=== PATIENT | female | born 1950 | race Caucasian/White ===

== ENCOUNTER 2016-10-16 10:09 | Emergency (ER) | payer OTHER ==
[~2016-10-16] VITALS: Ht 157.5 cm; Wt 90.7 kg
[2016-10-16 10:13] VITALS: BP_SYST 152
[2016-10-16 11:17] LABS: BASOPHILS # (AUTO) 0.1 K/uL (0.0-0.2); BASOPHILS % (AUTO) 0.9 % (0.0-2.0); EOSINOPHILS # (AUTO) 0.1 K/uL (0.0-0.4); EOSINOPHILS % (AUTO) 0.9 % (0.0-4.0); LYMPHOCYTES # (AUTO) 2.7 K/uL (1.0-5.5); LYMPHOCYTES % (AUTO) 30.4 % (20.5-51.5); MEAN CORPUSCULAR HEMOGLOBIN 30 pg (27-31); MEAN CORPUSCULAR HGB CONC 33 % (32-36); MEAN CORPUSCULAR VOLUME 89 fL (79.0-98.0); MONOCYTES # (AUTO) 0.5 K/uL (0.0-1.0); MONOCYTES % (AUTO) 6.1 % (1.7-9.3); NEUTROPHILS # (AUTO) 5.5 K/uL (1.8-7.7); NEUTROPHILS % (AUTO) 61.7 % (40.0-70.0); PLATELET COUNT (AUTO) 360 K/uL (130-430); RED BLOOD CELL COUNT(AUTO) 4.41 MIL/uL (4.2-6.2); RED CELL DISTRIBUTION WIDTH 12.9 % (9.0-15.0); WHITE BLOOD COUNT (AUTO) 8.9 K/uL (4.8-10.8)
[2016-10-16] MEDS ORDERED: COLCHICINE 0.6 MG TABLET PO ONE (13:00)
[2016-10-16 13:49] VITALS: BP_SYST 135
== END 2016-10-16 13:49 | disposition home or self-care (01) ==
LOC: SED 10:09
DX: M10.9 Gout, unspecified (principal); E11.9 Type 2 diabetes mellitus without complications; I10 Essential (primary) hypertension
CPT/HCPCS: 36415; 84550-TC; 85025; 93971; 99285

== ENCOUNTER 2016-12-18 09:03 | Inpatient (IN) | payer OTHER ==
[~2016-12-18] VITALS: Ht 152.4 cm; Wt 89.8 kg
[2016-12-18 09:09] VITALS: BP_SYST 151
[2016-12-18 10:12] LABS: BASOPHILS % (AUTO) 0.9 % (0.0-2.0); EOSINOPHILS # (AUTO) 0.3 K/uL (0.0-0.4); EOSINOPHILS % (AUTO) 6.8 % (0.0-4.0); HEMATOCRIT 41.4 % (36-48); HEMOGLOBIN 13.8 g/dL (12.0-16.0); LYMPHOCYTES # (AUTO) 1.6 K/uL (1.0-5.5); LYMPHOCYTES % (AUTO) 40.8 % (20.5-51.5); MEAN CORPUSCULAR HEMOGLOBIN 29 pg (27-31); MEAN CORPUSCULAR HGB CONC 33 % (32-36); MEAN CORPUSCULAR VOLUME 89 fL (79.0-98.0); MONOCYTES # (AUTO) 0.4 K/uL (0.0-1.0); MONOCYTES % (AUTO) 9.1 % (1.7-9.3); NEUTROPHILS # (AUTO) 1.7 K/uL (1.8-7.7); NEUTROPHILS % (AUTO) 42.4 % (40.0-70.0); PLATELET COUNT (AUTO) 211 K/uL (130-430); RED BLOOD CELL COUNT(AUTO) 4.68 MIL/uL (4.2-6.2); RED CELL DISTRIBUTION WIDTH 12.7 % (9.0-15.0)
[2016-12-18 10:27] LABS: CALCIUM 10.4 mg/dL (8.4-11.0); CHLORIDE 97 mmol/L (98-107); CREATININE 0.97 mg/dL (0.55-1.30); GLUCOSE 158 mg/dL (70-99); SODIUM SERUM 137 mmol/L (136-145); UREA NITROGEN, BLOOD 15 mg/dL (8-21)
[2016-12-18] MEDS ORDERED: ONDANSETRON HCL 4 MG/2 ML VIAL IVP ONE (10:30)
[2016-12-18 10:31] LABS: GFR AFRICAN AMERICAN 74 mL/min (>90); INR 1.1 (0.8-1.2); PROTHROMBIN TIME 10.8 SECS (9.5-12.5)
[2016-12-18] MEDS ORDERED: POTASSIUM CHLORIDE 20 MEQ TAB.PRT.SR PO ONE (10:45)
[2016-12-18] MEDS ORDERED: POTASSIUM CHLORIDE 40 MEQ in NS 250 ML IV ONE (10:45)
[2016-12-18 10:53] LABS: ALANINE AMINOTRANSFERASE 49 U/L (12-78); ALBUMIN 3.9 g/dL (3.4-4.8); ANION GAP 11 (5-15); ASPARTATE AMINOTRANSFERASE 32 U/L (10-37); FREE T4 (FREE THYROXINE) 0.5 ng/dL (0.6-1.6); TOTAL BILIRUBIN 0.3 mg/dL (0.0-1.0)
[2016-12-18 10:56] LABS: ALCOHOL, BLOOD < 3 mg/dL (<10); POTASSIUM 2.6 mmol/L (3.5-5.1)
[2016-12-18 10:57] LABS: ERYTHROCYTE SEDIMENTATION RATE 71 MM/HR (0-20)
[2016-12-18] MEDS ORDERED: ATEN1TAB47 PO (10:59)
[2016-12-18] MEDS ORDERED: LEVO25TA58 PO (10:59)
[2016-12-18] MEDS ORDERED: FOLI-43 PO (10:59)
[2016-12-18] MEDS ORDERED: PRO20 PO (10:59)
[2016-12-18] MEDS ORDERED: PRAV20TA PO (10:59)
[2016-12-18] MEDS ORDERED: VITD2000 PO (10:59)
[2016-12-18] MEDS ORDERED: COLC0.6T67 PO (10:59)
[2016-12-18] MEDS ORDERED: POTA20TA83 PO (10:59)
[2016-12-18] MEDS ORDERED: ALLO100T PO (10:59)
[2016-12-18] MEDS ORDERED: KETOROLAC TROMETHAMINE 30 MG VIAL IVP ONE (11:15)
[2016-12-18] MEDS ORDERED: DIPHENHYDRAMINE INJ 50 MG/ML VIAL IVP ONE (12:00)
[2016-12-18] MEDS ORDERED: IPRATROPIUM BROM 0.5 MG/2.5 ML VIAL.NEB (ATROVENT) INH PRN (12:45)
[2016-12-18] MEDS ORDERED: ALBUTEROL SULFATE 0.083% 2.5 MG/3 ML VIAL.NEB INH PRN (12:45)
[2016-12-18 12:55] LABS: BILIRUBIN,URINE NEGATIVE (NEGATIVE); CLARITY/URINE SL HAZY (CLEAR); COLOR,URINE YELLOW (YELLOW); GLUCOSE,URINE NEGATIVE (NEGATIVE); KETONES,URINE NEGATIVE (NEGATIVE); LEUKOCYTE ESTERASE ,URINE TRACE (NEGATIVE); NITRITE, URINE NEGATIVE (NEGATIVE); PROTEIN URINE NEGATIVE (NEGATIVE); UROBILINOGEN,URINE 0.2 (0.2-1.0)
[2016-12-18 13:19] LABS: BLOOD, URINE TRACE (NEGATIVE)
[2016-12-18 13:36] LABS: BACTERIA,URINE RARE /HPF (None Seen); URINE AMORPHOUS URATE 1+ /HPF (None Seen)
[2016-12-18 14:49] VITALS: BP_SYST 115
[2016-12-18 15:17] VITALS: BP_SYST 115
[2016-12-18] MEDS ORDERED: LISINOPRIL 10 MG TABLET (PRINIVIL) PO ONE (16:00)
[2016-12-18 16:37] VITALS: BP_SYST 115
[2016-12-18] MEDS: D5/0.45 NS 1,000 ML IV SCH (18:28)
[2016-12-18] MEDS ORDERED: COLCHICINE 0.6 MG TABLET PO SCH (21:00)
[2016-12-19 00:51] VITALS: BP_SYST 108
[2016-12-19 04:50] VITALS: BP_SYST 104
[2016-12-19 06:27] LABS: BASOPHILS % (AUTO) 0.6 % (0.0-2.0); EOSINOPHILS # (AUTO) 0.3 K/uL (0.0-0.4); EOSINOPHILS % (AUTO) 6.5 % (0.0-4.0); HEMATOCRIT 37.5 % (36-48); LYMPHOCYTES # (AUTO) 2.2 K/uL (1.0-5.5); LYMPHOCYTES % (AUTO) 53.5 % (20.5-51.5); MEAN CORPUSCULAR HEMOGLOBIN 29 pg (27-31); MEAN CORPUSCULAR HGB CONC 32 % (32-36); MEAN CORPUSCULAR VOLUME 90 fL (79.0-98.0); MONOCYTES # (AUTO) 0.4 K/uL (0.0-1.0); MONOCYTES % (AUTO) 9.2 % (1.7-9.3); NEUTROPHILS # (AUTO) 1.2 K/uL (1.8-7.7); NEUTROPHILS % (AUTO) 30.2 % (40.0-70.0); PLATELET COUNT (AUTO) 202 K/uL (130-430); RED BLOOD CELL COUNT(AUTO) 4.19 MIL/uL (4.2-6.2); RED CELL DISTRIBUTION WIDTH 12.7 % (9.0-15.0); WHITE BLOOD COUNT (AUTO) 4.1 K/uL (4.8-10.8)
[2016-12-19] MEDS: D5/0.45 NS 1,000 ML IV SCH (06:37)
[2016-12-19 06:53] LABS: CALCIUM 9.4 mg/dL (8.4-11.0)
[2016-12-19] MEDS ORDERED: LEVOTHYROXINE SODIUM 0.025 MG TABLET PO SCH (07:00)
[2016-12-19 07:54] LABS: CREATININE 0.93 mg/dL (0.55-1.30)
[2016-12-19 08:00] VITALS: BP_SYST 134
[2016-12-19] MEDS ORDERED: SIMVASTATIN 10 MG TABLET PO SCH (09:00)
[2016-12-19] MEDS ORDERED: POTASSIUM CHLORIDE 20 MEQ TAB.PRT.SR PO SCH (09:00)
[2016-12-19] MEDS ORDERED: FOLIC ACID 1 MG TABLET PO SCH (09:00)
[2016-12-19] MEDS ORDERED: ALLOPURINOL 100 MG TABLET (ZYLOPRIM) PO SCH (09:00)
[2016-12-19] MEDS ORDERED: ENOXAPARIN SODIUM 40 MG/0.4 ML SYRINGE SUBCUT SCH (09:00)
[2016-12-19] MEDS ORDERED: PRAVASTATIN SODIUM 20 MG TABLET (PRAVACHOL) PO SCH (09:00)
[2016-12-19] MEDS ORDERED: CHOLECALCIFEROL (VITAMIN D3) 2,000 UNIT TABLET PO SCH (09:00)
[2016-12-19] MEDS ORDERED: POTASSIUM CHLORIDE 20 MEQ/PKT PACKET PO ONE (09:15)
[2016-12-19] MEDS ORDERED: LISI10TA5 PO (11:48)
[2016-12-19 11:52] VITALS: BP_SYST 130
[2016-12-19 12:30] VITALS: BP_SYST 130
== END 2016-12-19 13:25 | disposition home or self-care (01) | DRG 392 ==
LOC: SED 09:03 → STU 14:12
PROVIDERS: ADMIT Internal Medicine Hospice and Palliative Medicine; ATTEND Internal Medicine Hospice and Palliative Medicine
DX: R19.7 Diarrhea, unspecified (principal); D72.1 Eosinophilia; E03.9 Hypothyroidism, unspecified; E78.5 Hyperlipidemia, unspecified; E11.9 Type 2 diabetes mellitus without complications; R00.1 Bradycardia, unspecified; L29.9 Pruritus, unspecified; I10 Essential (primary) hypertension; E87.6 Hypokalemia; M10.9 Gout, unspecified; R55 Syncope and collapse; T44.7X5A Adverse effect of beta-adrenoreceptor antagonists, initial encounter; Y92.89 Other specified places as the place of occurrence of the external cause; Z91.018 Allergy to other foods; Z88.6 Allergy status to analgesic agent; Z79.899 Other long term (current) drug therapy
CPT/HCPCS: 36415; 80048; 80053; 81000-TC; 83605; 83880; 84439; 84443-TC; 85025; 85610-TC; 85651-TC; 87040-TC; 93005; 96365; 96375; 99285; G0482; J1200; J1650; J1885; J2405; J3480; J7050

== ENCOUNTER 2020-08-25 06:00 | Inpatient (IN) | payer OTHER, SELFPAY ==
[2020-08-21 09:36] LABS: BASOPHILS # (AUTO) 0.1 K/uL (0.0-0.2); BASOPHILS % (AUTO) 1.3 % (0.0-2.0); EOSINOPHILS # (AUTO) 0.1 K/uL (0.0-0.4); EOSINOPHILS % (AUTO) 2.1 % (0.0-4.0); HEMATOCRIT 37.7 % (36-48); HEMOGLOBIN 12.9 g/dL (12.0-16.0); LYMPHOCYTES # (AUTO) 2.1 K/uL (1.0-5.5); LYMPHOCYTES % (AUTO) 38.2 % (20.5-51.5); MEAN CORPUSCULAR HEMOGLOBIN 31 pg (27-31); MEAN CORPUSCULAR HGB CONC 34 % (32-36); MEAN CORPUSCULAR VOLUME 91 fL (79.0-98.0); MONOCYTES # (AUTO) 0.4 K/uL (0.0-1.0); NEUTROPHILS # (AUTO) 2.9 K/uL (1.8-7.7); NEUTROPHILS % (AUTO) 51.4 % (40.0-70.0); PLATELET COUNT (AUTO) 355 K/uL (130-430); RED BLOOD CELL COUNT(AUTO) 4.15 MIL/uL (4.2-6.2); RED CELL DISTRIBUTION WIDTH 13.4 % (9.0-15.0); WHITE BLOOD COUNT (AUTO) 5.6 K/uL (4.8-10.8)
[2020-08-21 09:37] LABS: BILIRUBIN,URINE NEGATIVE (NEGATIVE); BLOOD, URINE NEGATIVE (NEGATIVE); CLARITY/URINE CLEAR (CLEAR); COLOR,URINE YELLOW (YELLOW); GLUCOSE,URINE NEGATIVE (NEGATIVE); KETONES,URINE NEGATIVE (NEGATIVE); LEUKOCYTE ESTERASE ,URINE NEGATIVE (NEGATIVE); NITRITE, URINE NEGATIVE (NEGATIVE); PH,URINE 5.5 (5.0-8.0); PROTEIN URINE NEGATIVE (NEGATIVE); UROBILINOGEN,URINE 0.2 (0.2-1.0)
[2020-08-21 09:39] LABS: CALCIUM 9.1 mg/dL (8.4-11.0); CREATININE 0.96 mg/dL (0.55-1.30); POTASSIUM 4.1 mmol/L (3.5-5.1); PROTHROMBIN TIME 9.9 SECS (9.5-12.5)
[~2020-08-25] VITALS: Ht 157.5 cm; Wt 90.7 kg
[~2020-08-25 06:00] MED LIST: ALLO100T PO; FOLI-43 PO; LEVO25TA2 PO; LISI10TA29 PO; PRAV20TA PO; PRO20 PO; VITD2000 PO
[2020-08-25] MEDS ORDERED: POLYMYXIN 500,000/BACIT.10,000 UNITS in NS IRR 1 L IR ONE (06:53)
[2020-08-25] MEDS ORDERED: BUPIVACAINE LIPOSOME/PF 266 MG/20 ML VIAL INFIL ONE (06:54)
[2020-08-25] MEDS ORDERED: CEFAZOLIN SOD 1 GM in D5W 50 ML IV ONE (07:00)
[2020-08-25] MEDS ORDERED: ACETAMINOPHEN 325 MG TABLET PO PRN ×2 (07:45→15:00)
[2020-08-25] MEDS ORDERED: BISACODYL 10 MG/SUPPOSITORY RC PRN (07:45)
[2020-08-25] MEDS ORDERED: D5/0.45 NS 1,000 ML IV ONE (07:45)
[2020-08-25] MEDS ORDERED: MORPHINE SULFATE 10 MG/ML VIAL IM PRN (07:45)
[2020-08-25] MEDS ORDERED: ACETAMINOPHEN I.V. 1000 MG 100 ML IV ONE (10:30)
[2020-08-25] MEDS: HYDROcodone/ACETAMIN 7.5-325 MG TAB PO PRN ×3 (11:11→23:05)
[2020-08-25 11:15] VITALS: BP_SYST 104
[2020-08-25] MEDS ORDERED: ONDANSETRON HCL 4 MG/2 ML VIAL ONE (11:56)
[2020-08-25] MEDS ORDERED: ONDANSETRON HCL 4 MG/2 ML VIAL IVP PRN (12:00)
[2020-08-25 12:20] VITALS: BP_SYST 136
[2020-08-25] MEDS: CEFAZOLIN 1 GM IVPB PREMIX 50 ML IV SCH ×2 (14:08→21:03)
[2020-08-25 16:05] VITALS: BP_SYST 138
[2020-08-25] MEDS: MORPHINE 4 MG INJ. 4 MG/ML VIAL IVP PRN ×2 (16:50→20:57)
[2020-08-25 20:40] VITALS: BP_SYST 117
[2020-08-26 00:05] VITALS: BP_SYST 110
[2020-08-26] MEDS: MORPHINE 4 MG INJ. 4 MG/ML VIAL IVP PRN ×3 (01:16→20:59)
[2020-08-26] MEDS: HYDROcodone/ACETAMIN 7.5-325 MG TAB PO PRN ×2 (03:08→07:46)
[2020-08-26] MEDS: LEVOTHYROXINE SODIUM 0.025 MG TABLET PO SCH (06:13)
[2020-08-26 06:31] LABS: BASOPHILS % (AUTO) 0.1 % (0.0-2.0); HEMATOCRIT 29.8 % (36-48); HEMOGLOBIN 10.1 g/dL (12.0-16.0); LYMPHOCYTES # (AUTO) 0.9 K/uL (1.0-5.5); LYMPHOCYTES % (AUTO) 6.5 % (20.5-51.5); MEAN CORPUSCULAR HEMOGLOBIN 31 pg (27-31); MEAN CORPUSCULAR HGB CONC 34 % (32-36); MEAN CORPUSCULAR VOLUME 91 fL (79.0-98.0); MONOCYTES # (AUTO) 1.2 K/uL (0.0-1.0); MONOCYTES % (AUTO) 8.1 % (1.7-9.3); NEUTROPHILS # (AUTO) 12.2 K/uL (1.8-7.7); NEUTROPHILS % (AUTO) 85.3 % (40.0-70.0); PLATELET COUNT (AUTO) 306 K/uL (130-430); RED BLOOD CELL COUNT(AUTO) 3.28 MIL/uL (4.2-6.2); RED CELL DISTRIBUTION WIDTH 13.6 % (9.0-15.0); WHITE BLOOD COUNT (AUTO) 14.3 K/uL (4.8-10.8)
[2020-08-26 07:14] LABS: ALBUMIN 3.3 g/dL (3.4-4.8); CALCIUM 8.9 mg/dL (8.4-11.0); CREATININE 1.03 mg/dL (0.55-1.30); POTASSIUM 4.2 mmol/L (3.5-5.1); TOTAL BILIRUBIN 0.3 mg/dL (0.0-1.0)
[2020-08-26 08:00] VITALS: BP_SYST 127
[2020-08-26] MEDS: MORPHINE 2 MG/ML INJ. SYRINGE IVP PRN (08:38)
[2020-08-26] MEDS: ALLOPURINOL 100 MG TABLET (ZYLOPRIM) PO SCH (08:38)
[2020-08-26] MEDS: ATORVASTATIN 10 MG TABLET PO SCH (08:38)
[2020-08-26] MEDS: FOLIC ACID 1 MG TABLET PO SCH (08:38)
[2020-08-26] MEDS: LISINOPRIL 10 MG TABLET (PRINIVIL) PO SCH (08:38)
[2020-08-26] MEDS: FLUoxetine HCL 20 MG CAPSULE (PROzac) PO SCH (08:38)
[2020-08-26] MEDS: RIVAROXABAN 10 MG TABLET PO SCH (08:39)
[2020-08-26] MEDS ORDERED: PRAVASTATIN SODIUM 20 MG TABLET (PRAVACHOL) PO SCH (09:00)
[2020-08-26] MEDS ORDERED: MORPHINE SULFATE 10 MG/ML VIAL IM PRN (11:15)
[2020-08-26] MEDS ORDERED: DIPHENHYDRAMINE INJ 50 MG/ML VIAL IVP PRN (11:15)
[2020-08-26] MEDS ORDERED: MORPHINE SULFATE 10 MG/ML VIAL ONE (11:23)
[2020-08-26] MEDS ORDERED: DIPHENHYDRAMINE INJ 50 MG/ML VIAL ONE (11:24)
[2020-08-26 12:14] VITALS: BP_SYST 141
[2020-08-26 17:15] VITALS: BP_SYST 130
[2020-08-26 20:00] VITALS: BP_SYST 135
[2020-08-27 02:45] VITALS: BP_SYST 131
[2020-08-27] MEDS: MORPHINE 4 MG INJ. 4 MG/ML VIAL IVP PRN ×2 (05:52→21:12)
[2020-08-27] MEDS: LEVOTHYROXINE SODIUM 0.025 MG TABLET PO SCH (06:02)
[2020-08-27 08:00] VITALS: BP_SYST 112
[2020-08-27] MEDS: FLUoxetine HCL 20 MG CAPSULE (PROzac) PO SCH (08:40)
[2020-08-27] MEDS: FOLIC ACID 1 MG TABLET PO SCH (08:40)
[2020-08-27] MEDS: ATORVASTATIN 10 MG TABLET PO SCH (08:40)
[2020-08-27] MEDS: RIVAROXABAN 10 MG TABLET PO SCH (08:41)
[2020-08-27] MEDS: ALLOPURINOL 100 MG TABLET (ZYLOPRIM) PO SCH (08:42)
[2020-08-27] MEDS: LISINOPRIL 10 MG TABLET (PRINIVIL) PO SCH (08:42)
[2020-08-27 12:18] VITALS: BP_SYST 131
[2020-08-27 15:40] LABS: BASOPHILS % (AUTO) 0.1 % (0.0-2.0); EOSINOPHILS % (AUTO) 0.1 % (0.0-4.0); HEMATOCRIT 27.7 % (36-48); HEMOGLOBIN 9.6 g/dL (12.0-16.0); LYMPHOCYTES # (AUTO) 1.5 K/uL (1.0-5.5); LYMPHOCYTES % (AUTO) 14.7 % (20.5-51.5); MEAN CORPUSCULAR HEMOGLOBIN 31 pg (27-31); MEAN CORPUSCULAR HGB CONC 35 % (32-36); MEAN CORPUSCULAR VOLUME 91 fL (79.0-98.0); MONOCYTES # (AUTO) 1.2 K/uL (0.0-1.0); MONOCYTES % (AUTO) 11.5 % (1.7-9.3); NEUTROPHILS # (AUTO) 7.7 K/uL (1.8-7.7); NEUTROPHILS % (AUTO) 73.6 % (40.0-70.0); PLATELET COUNT (AUTO) 273 K/uL (130-430); RED BLOOD CELL COUNT(AUTO) 3.06 MIL/uL (4.2-6.2); RED CELL DISTRIBUTION WIDTH 13.3 % (9.0-15.0); WHITE BLOOD COUNT (AUTO) 10.4 K/uL (4.8-10.8)
[2020-08-27 15:55] LABS: CALCIUM 9.1 mg/dL (8.4-11.0); CREATININE 0.86 mg/dL (0.55-1.30); POTASSIUM 3.9 mmol/L (3.5-5.1)
[2020-08-27 16:35] VITALS: BP_SYST 134
[2020-08-27 20:00] VITALS: BP_SYST 127
[2020-08-28] VITALS: BP_SYST 123
[2020-08-28] MEDS: MORPHINE 2 MG/ML INJ. SYRINGE IVP PRN ×3 (05:34→19:01)
[2020-08-28] MEDS: LEVOTHYROXINE SODIUM 0.025 MG TABLET PO SCH (06:15)
[2020-08-28 06:47] LABS: CALCIUM 9.1 mg/dL (8.4-11.0); CREATININE 0.82 mg/dL (0.55-1.30); POTASSIUM 3.9 mmol/L (3.5-5.1)
[2020-08-28 06:53] LABS: BASOPHILS % (AUTO) 0.2 % (0.0-2.0); EOSINOPHILS % (AUTO) 0.1 % (0.0-4.0); HEMOGLOBIN 9.5 g/dL (12.0-16.0); LYMPHOCYTES # (AUTO) 1.4 K/uL (1.0-5.5); LYMPHOCYTES % (AUTO) 14.7 % (20.5-51.5); MEAN CORPUSCULAR HEMOGLOBIN 31 pg (27-31); MEAN CORPUSCULAR HGB CONC 34 % (32-36); MEAN CORPUSCULAR VOLUME 91 fL (79.0-98.0); MONOCYTES # (AUTO) 1.1 K/uL (0.0-1.0); MONOCYTES % (AUTO) 10.8 % (1.7-9.3); NEUTROPHILS # (AUTO) 7.2 K/uL (1.8-7.7); NEUTROPHILS % (AUTO) 74.2 % (40.0-70.0); PLATELET COUNT (AUTO) 295 K/uL (130-430); RED BLOOD CELL COUNT(AUTO) 3.08 MIL/uL (4.2-6.2); RED CELL DISTRIBUTION WIDTH 13.6 % (9.0-15.0); WHITE BLOOD COUNT (AUTO) 9.7 K/uL (4.8-10.8)
[2020-08-28] MEDS: FLUoxetine HCL 20 MG CAPSULE (PROzac) PO SCH (08:51)
[2020-08-28] MEDS: ATORVASTATIN 10 MG TABLET PO SCH (08:51)
[2020-08-28] MEDS: ALLOPURINOL 100 MG TABLET (ZYLOPRIM) PO SCH (08:52)
[2020-08-28] MEDS: LISINOPRIL 10 MG TABLET (PRINIVIL) PO SCH (08:52)
[2020-08-28] MEDS: FOLIC ACID 1 MG TABLET PO SCH (08:53)
[2020-08-28] MEDS: RIVAROXABAN 10 MG TABLET PO SCH (08:53)
[2020-08-28 12:43] VITALS: BP_SYST 117
[2020-08-28] MEDS: HYDROcodone/ACETAMIN 7.5-325 MG TAB PO PRN (13:08)
[2020-08-28 15:23] VITALS: BP_SYST 115
[2020-08-28 20:00] VITALS: BP_SYST 119
[2020-08-29 00:47] VITALS: BP_SYST 102
[2020-08-29 08:00] VITALS: BP_SYST 124
[2020-08-29] MEDS: LEVOTHYROXINE SODIUM 0.025 MG TABLET PO SCH (08:29)
[2020-08-29] MEDS: FLUoxetine HCL 20 MG CAPSULE (PROzac) PO SCH (08:58)
[2020-08-29] MEDS: ALLOPURINOL 100 MG TABLET (ZYLOPRIM) PO SCH (08:58)
[2020-08-29] MEDS: FOLIC ACID 1 MG TABLET PO SCH (08:58)
[2020-08-29] MEDS: LISINOPRIL 10 MG TABLET (PRINIVIL) PO SCH (08:58)
[2020-08-29] MEDS: ATORVASTATIN 10 MG TABLET PO SCH (08:58)
[2020-08-29] MEDS: RIVAROXABAN 10 MG TABLET PO SCH (08:59)
[2020-08-29] MEDS: HYDROcodone/ACETAMIN 7.5-325 MG TAB PO PRN (11:32)
[2020-08-29 13:19] VITALS: BP_SYST 136
[2020-08-29 13:26] VITALS: BP_SYST 136
== END 2020-08-29 15:30 | DRG 470 ==
LOC: SMU 06:00
PROVIDERS: ADMIT Orthopaedic Surgery; ATTEND Orthopaedic Surgery
PROC: 0SRD0J9 Replacement of Left Knee Joint with Synthetic Substitute, Cemented, Open Approach (ICD-10-PCS; principal; 2020-08-25 07:25)
DX: M17.12 Unilateral primary osteoarthritis, left knee (principal); E78.5 Hyperlipidemia, unspecified; G89.29 Other chronic pain; Z20.822 Contact with and (suspected) exposure to COVID-19; R53.81 Other malaise; I10 Essential (primary) hypertension; Z90.10 Acquired absence of unspecified breast and nipple; Z88.5 Allergy status to narcotic agent; Z91.018 Allergy to other foods
CPT/HCPCS: 36415; 71046-TC; 80048; 80053; 81003; 82962; 85025; 85610-TC; 85730-TC; 87081; 88305; 88311; 93005; 97110-GP; 97112-GP; 97116-GP; 97530-GP; C1713; C1776; C9290; J0690; J1200; J2270; J2405; J7060; U0003